=== PATIENT | male | born 1935 | race Two or more races ===

== ENCOUNTER → 2016-11-02 | Outpatient (CLI) | payer OTHER ==
[~2016-11-02] MED LIST: VERA240T67 PO
[2016-11-02 08:00] LABS: Basophils # (auto) 0 uL; Basophils % (auto) 0.5 % (0.0-2.0); Eosinophils # (auto) 0.3 uL; Eosinophils % (auto) 5.5 % (0.0-7.0); Hematocrit 49.2 % (41.0-53.0); Hemoglobin 16.2 g/dL (13.5-17.5); Lymphocytes # (auto) 2.5 uL; Lymphocytes % (auto) 41.7 % (10.0-50.0); Mean Corpuscular Hemoglobin 29.9 pg (28.0-32.0); Mean Corpuscular Volume 90.5 fL (80.0-100.0); Mean Platelet Volume 9.9 fL (7.4-10.4); Monocytes # (auto) 0.6 uL; Monocytes % (auto) 10.5 % (0.0-12.0); Neutrophils # (auto) 2.5 uL; Neutrophils % (auto) 41.8 % (37.0-80.0); Platelet Count (auto) 164 10^3/uL (140-450); Red Cell Distribution Width 13.7 % (11.6-16.0)
[2016-11-02 08:14] LABS: Urine Bilirubin Negative (Negative); Urine Blood 1+ /uL (Negative); Urine Color Yellow (Yellow); Urine Glucose Normal (Normal); Urine Ketone Negative (Negative); Urine Nitrite Negative (Negative); Urine RBC 4 /hpf (0 - 3); Urine Squamous Epithelial Cell FEW /hpf (<5); Urine Urobilinogen Normal (Negative)
[2016-11-02 08:43] LABS: BUN/Creatinine Ratio 17.9; Bilirubin, Total 1.6 mg/dL (0.2-1.0); Calcium 8.5 mg/dL (8.5-10.1); Total Protein 7.1 g/dL (6.4-8.2)
== END | disposition home or self-care (01) ==
LOC: LAB 07:18
PROVIDERS: ATTEND Internal Medicine
DX: Z00.00 Encounter for general adult medical examination without abnormal findings (principal); I10 Essential (primary) hypertension; R73.09 Other abnormal glucose; E55.9 Vitamin D deficiency, unspecified
CPT/HCPCS: 36415; 80053; 80061; 81001; 82043; 82306; 83036; 85025

== ENCOUNTER → 2016-11-08 | Outpatient (CLI) | payer OTHER ==
[2016-11-08 09:24] LABS: Albumin 3.9 g/dL (3.4-5.0); Bilirubin, Total 1.2 mg/dL (0.2-1.0); Total Protein 7.2 g/dL (6.4-8.2)
[2016-11-08 09:41] LABS: Bilirubin, Direct 0.3 mg/dL (0-0.2)
== END | disposition home or self-care (01) ==
LOC: LAB 07:59
PROVIDERS: ATTEND Internal Medicine
DX: E11.9 Type 2 diabetes mellitus without complications (principal); R73.09 Other abnormal glucose
CPT/HCPCS: 36415; 80076

== ENCOUNTER → 2016-12-30 | Outpatient (CLI) | payer OTHER ==
[2016-12-30 10:27] LABS: Albumin 3.7 g/dL (3.4-5.0); Bilirubin, Direct 0.2 mg/dL (0-0.2); Bilirubin, Total 1.4 mg/dL (0.2-1.0); Total Protein 6.6 g/dL (6.4-8.2)
== END | disposition home or self-care (01) ==
LOC: LAB 09:29
PROVIDERS: ATTEND Internal Medicine
DX: K75.81 Nonalcoholic steatohepatitis (NASH) (principal); Z86.79 Personal history of other diseases of the circulatory system
CPT/HCPCS: 36415; 80076

== ENCOUNTER → 2017-02-07 | Outpatient (CLI) | payer OTHER ==
[2017-02-07 09:19] LABS: Albumin 3.9 g/dL (3.4-5.0); Bilirubin, Direct 0.2 mg/dL (0-0.2); Bilirubin, Total 1.1 mg/dL (0.2-1.0)
== END ==
LOC: LAB 08:31
PROVIDERS: ATTEND Internal Medicine
DX: E87.8 Other disorders of electrolyte and fluid balance, not elsewhere classified (principal)
CPT/HCPCS: 36415; 80076

== ENCOUNTER → 2017-09-22 | Outpatient (CLI) | payer OTHER ==
[2017-09-22 08:05] LABS: Basophils # (auto) 0 uL; Basophils % (auto) 0.8 % (0.0-2.0); Eosinophils # (auto) 0.3 uL; Eosinophils % (auto) 4.8 % (0.0-7.0); Hematocrit 51.6 % (41.0-53.0); Hemoglobin 16.9 g/dL (13.5-17.5); Lymphocytes # (auto) 2.4 uL; Lymphocytes % (auto) 40.5 % (10.0-50.0); Mean Corpuscular Hemoglobin 30.4 pg (28.0-32.0); Mean Corpuscular Hgb Conc. 32.7 g/dL (32.0-36.0); Monocytes # (auto) 0.6 uL; Monocytes % (auto) 9.7 % (0.0-12.0); Neutrophils # (auto) 2.6 uL; Neutrophils % (auto) 44.2 % (37.0-80.0); Nucleated Red Blood Cells % 0.2 %; Platelet Count (auto) 139 10^3/uL (140-450); Red Blood Cells 5.55 10^6/uL (4.5-5.90); Red Cell Distribution Width 13.5 % (11.8-14.3); White Blood Cell 5.8 10^3/uL (4.4-10.8)
[2017-09-22 08:29] LABS: BUN/Creatinine Ratio 14.9; Bilirubin, Total 1.1 mg/dL (0.2-1.0); Potassium 4.4 mmol/L (3.5-5.1); Total Protein 7.7 g/dL (6.4-8.2)
== END | disposition home or self-care (01) ==
LOC: LAB 07:31
PROVIDERS: ATTEND Physician Assistant
DX: I10 Essential (primary) hypertension (principal); E11.9 Type 2 diabetes mellitus without complications; I25.119 Atherosclerotic heart disease of native coronary artery with unspecified angina pectoris; K76.0 Fatty (change of) liver, not elsewhere classified; Z86.79 Personal history of other diseases of the circulatory system
CPT/HCPCS: 36415; 80053; 80061; 83036; 85025

== ENCOUNTER → 2017-11-30 | Outpatient (CLI) | payer OTHER | END | disposition home or self-care (01) | LOC: XYW 07:18 | PROVIDERS: ATTEND Internal Medicine | DX: I48.91 Unspecified atrial fibrillation (principal); E11.9 Type 2 diabetes mellitus without complications; I10 Essential (primary) hypertension | CPT/HCPCS: 93306 ==

== ENCOUNTER → 2018-04-19 | Outpatient (CLI) | payer OTHER ==
[~2018-04-19] VITALS: Ht 180.3 cm; Wt 74.8 kg
[~2018-04-19] MED LIST changes: +ADENOSINE 63 MG in GIVE UN-DILUTED 0 ML IV STA
[2018-04-19 10:39] VITALS: BP 159/69
== END | disposition home or self-care (01) ==
LOC: XY 09:17
PROVIDERS: ATTEND Internal Medicine
DX: I48.91 Unspecified atrial fibrillation (principal); R42 Dizziness and giddiness; R00.2 Palpitations
CPT/HCPCS: 78452; 93017; A9500; J0153

== ENCOUNTER → 2018-05-17 | Outpatient (CLI) | payer OTHER ==
[~2018-05-17] MED LIST changes: -ADENOSINE 63 MG in GIVE UN-DILUTED 0 ML IV STA; +ASPI81TA27 PO; +CLOP75TA28 PO
[2018-05-17 10:40] LABS: Basophils # (auto) 0 uL; Basophils % (auto) 0.6 % (0.0-2.0); Eosinophils # (auto) 0.4 uL; Eosinophils % (auto) 6.3 % (0.0-7.0); Hematocrit 47.2 % (41.0-53.0); Hemoglobin 15.7 g/dL (13.5-17.5); Lymphocytes # (auto) 2.3 uL; Lymphocytes % (auto) 41.9 % (10.0-50.0); Mean Corpuscular Hemoglobin 30.3 pg (28.0-32.0); Mean Corpuscular Hgb Conc. 33.3 g/dL (32.0-36.0); Monocytes # (auto) 0.7 uL; Monocytes % (auto) 12.9 % (0.0-12.0); Neutrophils # (auto) 2.1 uL; Neutrophils % (auto) 38.3 % (37.0-80.0); Nucleated Red Blood Cells % 0.1 %; Platelet Count (auto) 130 10^3/uL (140-450); Red Blood Cells 5.18 10^6/uL (4.5-5.90); Red Cell Distribution Width 13.6 % (11.8-14.3); White Blood Cell 5.6 10^3/uL (4.4-10.8)
[2018-05-17 10:54] LABS: INR 1.03 (0.9-1.15); Partial Thromboplastin Time 28.2 sec (23.78-33.04)
[2018-05-17 10:57] LABS: Albumin 3.7 g/dL (3.4-5.0); BUN/Creatinine Ratio 15.1; Calcium 8.2 mg/dL (8.5-10.1); Potassium 4.3 mmol/L (3.5-5.1)
[2018-05-17 11:00] LABS: Bilirubin, Total 1.1 mg/dL (0.2-1.0)
== END | disposition home or self-care (01) ==
LOC: LAB 10:08
PROVIDERS: ATTEND Internal Medicine
DX: Z01.812 Encounter for preprocedural laboratory examination (principal)
CPT/HCPCS: 36415; 80053; 85025; 85610; 85730

== ENCOUNTER → 2018-07-26 | Outpatient (CLI) | payer OTHER ==
[2018-07-26 07:23] LABS: Basophils # (auto) 0 uL; Basophils % (auto) 0.5 % (0.0-2.0); Eosinophils # (auto) 0.4 uL; Eosinophils % (auto) 6.7 % (0.0-7.0); Hematocrit 52.1 % (41.0-53.0); Hemoglobin 17.3 g/dL (13.5-17.5); Lymphocytes # (auto) 2.4 uL; Mean Corpuscular Hemoglobin 30.6 pg (28.0-32.0); Mean Corpuscular Hgb Conc. 33.3 g/dL (32.0-36.0); Monocytes # (auto) 0.6 uL; Monocytes % (auto) 9.6 % (0.0-12.0); Neutrophils # (auto) 2.6 uL; Neutrophils % (auto) 43.2 % (37.0-80.0); Nucleated Red Blood Cells % 0.3 %; Platelet Count (auto) 147 10^3/uL (140-450); Red Blood Cells 5.66 10^6/uL (4.5-5.90); Red Cell Distribution Width 13.3 % (11.8-14.3)
[2018-07-26 07:28] LABS: Urine Bacteria FEW /hpf (None Seen); Urine Blood TRACE /uL (Negative); Urine Specific Gravity 1.011 (1.001-1.035); Urine WBC <1 /hpf (0 - 3)
[2018-07-26 08:32] LABS: Albumin 3.9 g/dL (3.4-5.0); Calcium 8.7 mg/dL (8.5-10.1); Potassium 4.2 mmol/L (3.5-5.1)
[2018-07-26 08:37] LABS: BUN/Creatinine Ratio 12.2; Bilirubin, Total 1.2 mg/dL (0.2-1.0); Total Protein 7.3 g/dL (6.4-8.2)
== END | disposition home or self-care (01) ==
LOC: LAB 07:03
PROVIDERS: ATTEND Physician Assistant
DX: I10 Essential (primary) hypertension (principal); E11.9 Type 2 diabetes mellitus without complications; E78.5 Hyperlipidemia, unspecified; K75.81 Nonalcoholic steatohepatitis (NASH)
CPT/HCPCS: 36415; 80053; 80061; 81001; 83036; 85025

== ENCOUNTER → 2018-10-03 | Outpatient (CLI) | payer OTHER ==
[2018-10-03 09:14] LABS: Cholesterol 182 mg/dL (< 200); HDL Cholesterol 46 mg/dL (40-59); LDL Cholesterol 117 mg/dL (< 100); Triglycerides 141 mg/dL (< 150)
== END | disposition home or self-care (01) ==
LOC: LAB 07:30
PROVIDERS: ATTEND Internal Medicine
DX: E78.5 Hyperlipidemia, unspecified (principal)
CPT/HCPCS: 36415; 80061

== ENCOUNTER → 2019-06-14 | Outpatient (CLI) | payer OTHER ==
[~2019-06-14] MED LIST changes: +ASPI-404 PO; -ASPI81TA27 PO
[2019-06-14 07:37] LABS: Basophils # (auto) 0 uL; Basophils % (auto) 0.4 % (0.0-2.0); Eosinophils # (auto) 0.3 uL; Eosinophils % (auto) 4.4 % (0.0-7.0); Hemoglobin 15.3 g/dL (13.5-17.5); Lymphocytes % (auto) 35.1 % (10.0-50.0); Mean Corpuscular Hemoglobin 30.4 pg (28.0-32.0); Mean Corpuscular Hgb Conc. 33.4 g/dL (32.0-36.0); Mean Corpuscular Volume 91.2 fL (80.0-100.0); Monocytes # (auto) 0.6 uL; Monocytes % (auto) 10.7 % (0.0-12.0); Neutrophils # (auto) 2.8 uL; Neutrophils % (auto) 49.4 % (37.0-80.0); Platelet Count (auto) 130 10^3/uL (140-450); Red Blood Cells 5.04 10^6/uL (4.5-5.90); Red Cell Distribution Width 13.4 % (11.8-14.3); White Blood Cell 5.7 10^3/uL (4.4-10.8)
[2019-06-14 08:25] LABS: Calcium 8.4 mg/dL (8.5-10.1)
[2019-06-14 08:30] LABS: BUN/Creatinine Ratio 20.3; Bilirubin, Total 1.3 mg/dL (0.2-1.0); Total Protein 7.2 g/dL (6.4-8.2)
== END | disposition home or self-care (01) ==
LOC: LAB 07:03
PROVIDERS: ATTEND Physician Assistant
DX: Z12.5 Encounter for screening for malignant neoplasm of prostate (principal); E11.9 Type 2 diabetes mellitus without complications; E78.5 Hyperlipidemia, unspecified; I10 Essential (primary) hypertension
CPT/HCPCS: 36415; 80053; 80061; 83036; 84153; 85025

== ENCOUNTER → 2019-12-13 | Outpatient (CLI) | payer OTHER | END | disposition home or self-care (01) | LOC: XYW 07:41 | PROVIDERS: ATTEND Internal Medicine | DX: I08.2 Rheumatic disorders of both aortic and tricuspid valves (principal); I48.91 Unspecified atrial fibrillation; I10 Essential (primary) hypertension | CPT/HCPCS: 93306 ==

== ENCOUNTER → 2020-01-10 | Outpatient (CLI) | payer OTHER | END | disposition home or self-care (01) | LOC: XY 08:51 | PROVIDERS: ATTEND Internal Medicine | DX: I65.23 Occlusion and stenosis of bilateral carotid arteries (principal); R09.89 Other specified symptoms and signs involving the circulatory and respiratory systems | CPT/HCPCS: 93886 ==

== ENCOUNTER → 2020-05-29 | Outpatient (CLI) | payer OTHER ==
[~2020-05-29] MED LIST changes: -ASPI-404 PO; +ASPI-543 PO
[2020-05-29 15:20] LABS: Basophils # (auto) 0 10 ^3/uL (0-0.2); Basophils % (auto) 0.7 % (0.0-2.0); Eosinophils # (auto) 0.4 10 ^3/uL (0-0.8); Eosinophils % (auto) 6.4 % (0.0-7.0); Hematocrit 46.8 % (41.0-53.0); Hemoglobin 15.5 g/dL (13.5-17.5); Lymphocytes # (auto) 2.3 10 ^3/uL (0.4-5.4); Lymphocytes % (auto) 37.3 % (10.0-50.0); Mean Corpuscular Hemoglobin 30.1 pg (28.0-32.0); Mean Corpuscular Volume 91.1 fL (80.0-100.0); Monocytes # (auto) 0.9 10 ^3/uL (0-1.3); Monocytes % (auto) 15.2 % (0.0-12.0); Neutrophils # (auto) 2.5 10 ^3/uL (1.6-8.6); Neutrophils % (auto) 40.4 % (37.0-80.0); Nucleated Red Blood Cells % 0.1 %; Platelet Count (auto) 145 10^3/uL (140-450); Red Blood Cells 5.13 10^6/uL (4.5-5.90); Red Cell Distribution Width 13.4 % (11.8-14.3); White Blood Cell 6.1 10^3/uL (4.4-10.8)
[2020-05-29 15:52] LABS: Calcium 8.6 mg/dL (8.5-10.1); Potassium 4.3 mmol/L (3.5-5.1)
[2020-05-29 15:54] LABS: BUN/Creatinine Ratio 15.7
[2020-05-29 15:57] LABS: Bilirubin, Total 1.4 mg/dL (0.2-1.0); Total Protein 7.4 g/dL (6.4-8.2)
== END | disposition home or self-care (01) ==
LOC: LAB 15:07
PROVIDERS: ATTEND Internal Medicine
DX: I25.10 Atherosclerotic heart disease of native coronary artery without angina pectoris (principal); E78.5 Hyperlipidemia, unspecified; I48.91 Unspecified atrial fibrillation
CPT/HCPCS: 36415; 80053; 85025

== ENCOUNTER → 2020-08-01 | Outpatient (CLI) | payer OTHER ==
[2020-08-01 07:42] LABS: Basophils # (auto) 0 10 ^3/uL (0-0.2); Basophils % (auto) 0.6 % (0.0-2.0); Eosinophils # (auto) 0.2 10 ^3/uL (0-0.8); Hematocrit 48.9 % (41.0-53.0); Hemoglobin 16.5 g/dL (13.5-17.5); Lymphocytes # (auto) 2.7 10 ^3/uL (0.4-5.4); Lymphocytes % (auto) 43.2 % (10.0-50.0); Mean Corpuscular Hemoglobin 30.5 pg (28.0-32.0); Mean Corpuscular Hgb Conc. 33.7 g/dL (32.0-36.0); Mean Corpuscular Volume 90.6 fL (80.0-100.0); Monocytes # (auto) 0.6 10 ^3/uL (0-1.3); Monocytes % (auto) 10.4 % (0.0-12.0); Neutrophils # (auto) 2.6 10 ^3/uL (1.6-8.6); Neutrophils % (auto) 41.8 % (37.0-80.0); Nucleated Red Blood Cells % 0.1 %; Platelet Count (auto) 145 10^3/uL (140-450); Red Cell Distribution Width 13.3 % (11.8-14.3); White Blood Cell 6.2 10^3/uL (4.4-10.8)
[2020-08-01 08:39] LABS: Albumin 3.9 g/dL (3.4-5.0); Bilirubin, Total 1.7 mg/dL (0.2-1.0); Calcium 9.3 mg/dL (8.5-10.1); Total Protein 7.5 g/dL (6.4-8.2)
[2020-08-01 08:59] LABS: Potassium 4.7 mmol/L (3.5-5.1)
== END | disposition home or self-care (01) ==
LOC: LAB 07:13
PROVIDERS: ATTEND Physician Assistant
DX: I10 Essential (primary) hypertension (principal); E11.9 Type 2 diabetes mellitus without complications; I49.9 Cardiac arrhythmia, unspecified; R35.1 Nocturia; Z86.79 Personal history of other diseases of the circulatory system
CPT/HCPCS: 36415; 80053; 80061; 82043; 83036; 84153; 85025

== ENCOUNTER → 2020-08-13 | Outpatient (CLI) | payer OTHER ==
[~2020-08-13] VITALS: Ht 180.3 cm; Wt 79.4 kg
[~2020-08-13] MED LIST changes: +ADENOSINE 67 MG in GIVE UN-DILUTED 0 ML IV STA
[2020-08-13 09:46] VITALS: BP 137/56
== END | disposition home or self-care (01) ==
LOC: XYW 07:02
PROVIDERS: ATTEND Internal Medicine
DX: I48.91 Unspecified atrial fibrillation (principal)
CPT/HCPCS: 78452; 93017; A9500; J0153

== ENCOUNTER → 2020-11-26 | Day surgery (SDC) | payer OTHER ==
[2020-11-21 11:05] LABS: Basophils # (auto) 0 10 ^3/uL (0-0.2); Basophils % (auto) 0.7 % (0.0-2.0); Eosinophils # (auto) 0.3 10 ^3/uL (0-0.8); Hematocrit 48.1 % (41.0-53.0); Lymphocytes # (auto) 2.8 10 ^3/uL (0.4-5.4); Lymphocytes % (auto) 41.1 % (10.0-50.0); Mean Corpuscular Hemoglobin 30.3 pg (28.0-32.0); Mean Corpuscular Hgb Conc. 33.3 g/dL (32.0-36.0); Mean Corpuscular Volume 91.1 fL (80.0-100.0); Monocytes # (auto) 0.8 10 ^3/uL (0-1.3); Monocytes % (auto) 11.9 % (0.0-12.0); Neutrophils # (auto) 2.9 10 ^3/uL (1.6-8.6); Neutrophils % (auto) 42.3 % (37.0-80.0); Nucleated Red Blood Cells % 0.2 %; Platelet Count (auto) 134 10^3/uL (140-450); Red Blood Cells 5.27 10^6/uL (4.5-5.90); Red Cell Distribution Width 13.8 % (11.8-14.3); White Blood Cell 6.9 10^3/uL (4.4-10.8)
[2020-11-21 11:13] LABS: Urine Bacteria NONE SEEN /hpf (None Seen); Urine Blood 1+ /uL (Negative); Urine Specific Gravity 1.013 (1.001-1.035); Urine WBC <1 /hpf (0 - 3)
[2020-11-21 11:24] LABS: INR 1.08 (0.9-1.15); Partial Thromboplastin Time 28.7 sec (23.0-31.2)
[2020-11-21 11:33] LABS: Albumin 3.9 g/dL (3.4-5.0); Calcium 8.8 mg/dL (8.5-10.1); Potassium 4.2 mmol/L (3.5-5.1)
[2020-11-21 11:39] LABS: BUN/Creatinine Ratio 18.1; Bilirubin, Total 1.8 mg/dL (0.2-1.0); Total Protein 7.2 g/dL (6.4-8.2)
[~2020-11-26] VITALS: Ht 180.3 cm; Wt 79.4 kg
[~2020-11-26] MED LIST changes: -ADENOSINE 67 MG in GIVE UN-DILUTED 0 ML IV STA; +ATOR20TA PO; +BUPIVACAINE W/ EPINEPH 0.5% MPF 30ML VIAL IJ ONE; +DexAMETHasone SOD PHOS 10MG/1ML VIAL INJ ONE; +ETOMIDATE (2MG/ML) 20ML VIAL IV ONE; +HYDROmorphone HCL 2 MG/ML VL IV PRN; +LABETALOL HCL 5 MG/ML 4ML SYRINGE IV PRN; +MEPERIDINE HCL (50 MG/ML) 1 ML VIAL ONE; +MIDAZOLAM HCL 1MG/1ML-2 ML VIAL IV PRN; +MIDAZOLAM HCL 1MG/1ML-2 ML VIAL ONE; +MORPHINE SULFATE 4 MG/ML SYR/VIAL IV PRN; +ONDANSETRON HCL 4 MG/2 ML VIAL IV PRN; +ONDANSETRON HCL 4 MG/2 ML VIAL ONE; +SUCCINYLCHOLINE CHLORIDE 20 MG/ML 10ML VIAL IV ONE; +ceFAZolin 1GM/50ML 50 ML IV ONE; +ePHEDrine SULFATE 50 MG/ML AMP IV PRN; +fentaNYL CITRATE 100 MCG/2 ML VL ONE; +hydrALAZINE HCL 20 MG/ML VL IV PRN
[2020-11-26 06:30] VITALS: BP 151/77
== END | disposition home or self-care (01) ==
LOC: SUR 06:11
PROVIDERS: ATTEND Surgery
DX: K40.90 Unilateral inguinal hernia, without obstruction or gangrene, not specified as recurrent (principal); I49.9 Cardiac arrhythmia, unspecified; I10 Essential (primary) hypertension; I25.810 Atherosclerosis of coronary artery bypass graft(s) without angina pectoris; E78.5 Hyperlipidemia, unspecified; Z20.822 Contact with and (suspected) exposure to COVID-19; Z98.890 Other specified postprocedural states; Z79.899 Other long term (current) drug therapy; Z79.82 Long term (current) use of aspirin; Z87.891 Personal history of nicotine dependence; Z95.5 Presence of coronary angioplasty implant and graft
CPT/HCPCS: 36415; 49505; 80053; 81001; 85025; 85610; 85730; 88302; J0330; J0690; J1100; J2175; J2250; J2405; J3010; Q4100; U0003

== ENCOUNTER → 2021-07-27 | Outpatient (CLI) | payer OTHER ==
[~2021-07-27] MED LIST changes: -BUPIVACAINE W/ EPINEPH 0.5% MPF 30ML VIAL IJ ONE; -DexAMETHasone SOD PHOS 10MG/1ML VIAL INJ ONE; -ETOMIDATE (2MG/ML) 20ML VIAL IV ONE; -HYDROmorphone HCL 2 MG/ML VL IV PRN; -LABETALOL HCL 5 MG/ML 4ML SYRINGE IV PRN; -MEPERIDINE HCL (50 MG/ML) 1 ML VIAL ONE; -MIDAZOLAM HCL 1MG/1ML-2 ML VIAL IV PRN; -MIDAZOLAM HCL 1MG/1ML-2 ML VIAL ONE; -MORPHINE SULFATE 4 MG/ML SYR/VIAL IV PRN; -ONDANSETRON HCL 4 MG/2 ML VIAL IV PRN; -ONDANSETRON HCL 4 MG/2 ML VIAL ONE; -SUCCINYLCHOLINE CHLORIDE 20 MG/ML 10ML VIAL IV ONE; -ceFAZolin 1GM/50ML 50 ML IV ONE; -ePHEDrine SULFATE 50 MG/ML AMP IV PRN; -fentaNYL CITRATE 100 MCG/2 ML VL ONE; -hydrALAZINE HCL 20 MG/ML VL IV PRN
[2021-07-27 07:31] LABS: Basophils # (auto) 0 10 ^3/uL (0-0.2); Basophils % (auto) 0.3 % (0.0-2.0); Eosinophils # (auto) 0.3 10 ^3/uL (0-0.8); Eosinophils % (auto) 4.7 % (0.0-7.0); Hematocrit 49.3 % (41.0-53.0); Hemoglobin 16.2 g/dL (13.5-17.5); Lymphocytes # (auto) 2.5 10 ^3/uL (0.4-5.4); Lymphocytes % (auto) 41.9 % (10.0-50.0); Mean Corpuscular Hemoglobin 29.9 pg (28.0-32.0); Mean Corpuscular Hgb Conc. 32.9 g/dL (32.0-36.0); Mean Corpuscular Volume 90.9 fL (80.0-100.0); Monocytes # (auto) 0.6 10 ^3/uL (0-1.3); Monocytes % (auto) 10.2 % (0.0-12.0); Neutrophils # (auto) 2.6 10 ^3/uL (1.6-8.6); Neutrophils % (auto) 42.9 % (37.0-80.0); Nucleated Red Blood Cells % 0.2 %; Red Blood Cells 5.42 10^6/uL (4.5-5.90); Red Cell Distribution Width 13.5 % (11.8-14.3)
[2021-07-27 08:31] LABS: Potassium 4.2 mmol/L (3.5-5.1)
[2021-07-27 08:41] LABS: Albumin 4.2 g/dL (3.4-5.0); BUN/Creatinine Ratio 15.2; Bilirubin, Total 2.1 mg/dL (0.2-1.0); Calcium 9.2 mg/dL (8.5-10.1); Total Protein 7.2 g/dL (6.4-8.2)
== END | disposition home or self-care (01) ==
LOC: LAB 07:05
PROVIDERS: ATTEND Nurse Practitioner Family
DX: I25.10 Atherosclerotic heart disease of native coronary artery without angina pectoris (principal); I48.91 Unspecified atrial fibrillation; E11.9 Type 2 diabetes mellitus without complications
CPT/HCPCS: 36415; 80053; 80061; 82043; 83036; 84153; 85025

== ENCOUNTER → 2021-08-10 | Outpatient (CLI) | payer OTHER ==
[2021-08-10 12:37] LABS: Potassium 4.4 mmol/L (3.5-5.1)
[2021-08-10 12:48] LABS: Albumin 4.1 g/dL (3.4-5.0); BUN/Creatinine Ratio 14.7; Bilirubin, Total 1.3 mg/dL (0.2-1.0); Calcium 8.7 mg/dL (8.5-10.1); Total Protein 7.6 g/dL (6.4-8.2)
[2021-08-10 12:52] LABS: Hemoglobin 16.2 g/dL (13.5-17.5); Red Cell Distribution Width 13.3 % (11.8-14.3); White Blood Cell 6.2 10^3/uL (4.4-10.8)
[2021-08-10 13:44] LABS: Hematocrit 49.1 % (41.0-53.0); Mean Corpuscular Hemoglobin 29.8 pg (28.0-32.0); Mean Corpuscular Volume 90.3 fL (80.0-100.0); Red Blood Cells 5.44 10^6/uL (4.5-5.90)
[2021-08-10 13:59] LABS: Basophils % (manual) 0 (0.0-2.0); Blast Cells 0; Eosinophils % (manual) 0 (0-7); Metamyelocytes % 0; Myelocytes % 0; Promyelocytes % 0; Reactive Lymphocytes 0
[2021-08-10 14:02] LABS: Urine Bacteria NONE SEEN /hpf (None Seen); Urine Blood 2+ /uL (Negative); Urine WBC 1 /hpf (0 - 3)
[2021-08-10 16:20] LABS: Band Neutrophils % (manual) 4; Lymphocytes % (manual) 32 (10.0-50.0); Monocytes % (manual) 15 (0-12)
== END | disposition home or self-care (01) ==
LOC: LAB 11:25
PROVIDERS: ATTEND Nurse Practitioner Family
DX: Z01.818 Encounter for other preprocedural examination (principal); H26.9 Unspecified cataract; I11.0 Hypertensive heart disease with heart failure; E11.9 Type 2 diabetes mellitus without complications
CPT/HCPCS: 36415; 80053; 81001; 85007; 85027

== ENCOUNTER → 2022-06-14 | Outpatient (CLI) | payer OTHER | END | disposition home or self-care (01) | LOC: LAB 09:52 | PROVIDERS: ATTEND Nurse Practitioner Family | DX: R10.32 Left lower quadrant pain (principal) | CPT/HCPCS: 36415; 82565; 84520 ==

== ENCOUNTER → 2022-09-22 | Outpatient (CLI) | payer OTHER ==
[2022-09-22 09:02] LABS: Albumin 4.1 g/dL (3.4-5.0); Calcium 9.2 mg/dL (8.5-10.1); Potassium 4.4 mmol/L (3.5-5.1)
[2022-09-22 09:09] LABS: BUN/Creatinine Ratio 15.7; Bilirubin, Total 1.2 mg/dL (0.2-1.0); Total Protein 7.2 g/dL (6.4-8.2)
[2022-09-22 09:27] LABS: Basophils # (auto) 0 10 ^3/uL (0-0.2); Basophils % (auto) 0.5 % (0.0-2.0); Eosinophils # (auto) 0.3 10 ^3/uL (0-0.8); Eosinophils % (auto) 3.9 % (0.0-7.0); Hematocrit 49.2 % (41.0-53.0); Hemoglobin 16.6 g/dL (13.5-17.5); Lymphocytes # (auto) 2.7 10 ^3/uL (0.4-5.4); Lymphocytes % (auto) 40.1 % (10.0-50.0); Mean Corpuscular Hgb Conc. 33.8 g/dL (32.0-36.0); Mean Corpuscular Volume 91.8 fL (80.0-100.0); Monocytes # (auto) 0.7 10 ^3/uL (0-1.3); Monocytes % (auto) 10.8 % (0.0-12.0); Neutrophils % (auto) 44.7 % (37.0-80.0); Nucleated Red Blood Cells % 0.3 %; Red Blood Cells 5.36 10^6/uL (4.5-5.90); Red Cell Distribution Width 13.5 % (11.8-14.3); White Blood Cell 6.7 10^3/uL (4.4-10.8)
== END | disposition home or self-care (01) ==
LOC: LAB 07:42
PROVIDERS: ATTEND Nurse Practitioner Family
DX: Z00.00 Encounter for general adult medical examination without abnormal findings (principal); E78.5 Hyperlipidemia, unspecified; I10 Essential (primary) hypertension; E11.9 Type 2 diabetes mellitus without complications
CPT/HCPCS: 36415; 80053; 80061; 82043; 83036; 84439; 84443; 85025

== ENCOUNTER → 2022-11-02 | Outpatient (CLI) | payer OTHER | END | disposition home or self-care (01) | LOC: XYW 07:31 | PROVIDERS: ATTEND Internal Medicine | DX: I70.0 Atherosclerosis of aorta (principal) | CPT/HCPCS: 93306 ==

== ENCOUNTER 2022-11-22 06:48 | Inpatient (IN) | payer OTHER ==
[~2022-11-22] VITALS: Ht 175.3 cm; Wt 73.0 kg
[2022-11-22 08:07] LABS: Basophils # (auto) 0 10 ^3/uL (0-0.2); Basophils % (auto) 0.6 % (0.0-2.0); Eosinophils # (auto) 0.3 10 ^3/uL (0-0.8); Eosinophils % (auto) 4.6 % (0.0-7.0); Hematocrit 49.2 % (41.0-53.0); Hemoglobin 16.3 g/dL (13.5-17.5); Lymphocytes # (auto) 2.3 10 ^3/uL (0.4-5.4); Mean Corpuscular Hemoglobin 30.4 pg (28.0-32.0); Mean Corpuscular Hgb Conc. 33.2 g/dL (32.0-36.0); Mean Corpuscular Volume 91.6 fL (80.0-100.0); Monocytes # (auto) 0.8 10 ^3/uL (0-1.3); Monocytes % (auto) 11.9 % (0.0-12.0); Neutrophils # (auto) 3.1 10 ^3/uL (1.6-8.6); Neutrophils % (auto) 47.9 % (37.0-80.0); Nucleated Red Blood Cells % 0.4 %; Red Blood Cells 5.37 10^6/uL (4.5-5.90); Red Cell Distribution Width 13.1 % (11.8-14.3); White Blood Cell 6.5 10^3/uL (4.4-10.8)
[2022-11-22 10:40] LABS: Urine Bacteria NONE SEEN /hpf (None Seen); Urine Blood 1+ /uL (Negative); Urine Specific Gravity 1.021 (1.001-1.035); Urine WBC <1 /hpf (0 - 3)
[2022-11-22 10:49] LABS: Albumin 3.7 g/dL (3.4-5.0); BUN/Creatinine Ratio 18.9 (10.0-20.0)
[2022-11-22 10:58] LABS: Bilirubin, Total 1.5 mg/dL (0.2-1.0); Total Protein 6.6 g/dL (6.4-8.2)
[2022-11-22] MEDS ORDERED: ACETAMINOPHEN 325 MG TAB PO PRN (14:30)
[2022-11-22] MEDS: SODIUM CHLORIDE 0.9% 1,000 ML IV SCH (14:49)
[2022-11-22 21:08] VITALS: BP 136/70
[2022-11-22] MEDS: HEPARIN SODIUM (PORCINE) 5000 UNITS/ML 1ML VIAL SC SCH (22:00)
[2022-11-23] MEDS: SODIUM CHLORIDE 0.9% 1,000 ML IV SCH (03:53)
[2022-11-23 05:00] VITALS: BP 124/81
[2022-11-23 06:30] LABS: Basophils # (auto) 0 10 ^3/uL (0-0.2); Basophils % (auto) 0.5 % (0.0-2.0); Eosinophils # (auto) 0.3 10 ^3/uL (0-0.8); Eosinophils % (auto) 5.2 % (0.0-7.0); Hematocrit 48.5 % (41.0-53.0); Hemoglobin 16.3 g/dL (13.5-17.5); Lymphocytes # (auto) 2.1 10 ^3/uL (0.4-5.4); Mean Corpuscular Hemoglobin 30.7 pg (28.0-32.0); Mean Corpuscular Hgb Conc. 33.5 g/dL (32.0-36.0); Mean Corpuscular Volume 91.7 fL (80.0-100.0); Monocytes # (auto) 0.7 10 ^3/uL (0-1.3); Monocytes % (auto) 11.5 % (0.0-12.0); Neutrophils % (auto) 48.8 % (37.0-80.0); Nucleated Red Blood Cells % 0.1 %; Red Blood Cells 5.29 10^6/uL (4.5-5.90); Red Cell Distribution Width 13.1 % (11.8-14.3); White Blood Cell 6.2 10^3/uL (4.4-10.8)
[2022-11-23 06:42] LABS: Potassium 4.3 mmol/L (3.5-5.1)
[2022-11-23 06:55] LABS: Albumin 3.5 g/dL (3.4-5.0); BUN/Creatinine Ratio 16.7 (10.0-20.0); Bilirubin, Total 1.9 mg/dL (0.2-1.0); Calcium 8.7 mg/dL (8.5-10.1); Total Protein 6.6 g/dL (6.4-8.2)
[2022-11-23 09:15] VITALS: BP 143/85
[2022-11-23] MEDS: CLOPIDOGREL BISULFATE 75 MG TAB PO SCH (09:59)
[2022-11-23] MEDS: ATORVASTATIN 20 MG TAB PO SCH (10:00)
[2022-11-23] MEDS: VERAPAMIL HCL 120 mg ER tab PO SCH (10:00)
[2022-11-23] MEDS: HEPARIN SODIUM (PORCINE) 5000 UNITS/ML 1ML VIAL SC SCH ×2 (10:01→21:30)
[2022-11-23 12:57] VITALS: BP 133/67
[2022-11-23 13:00] VITALS: BP 103/62
[2022-11-23] MEDS ORDERED: GADOTERATE MEG 7.5 MMOL/15ml INJ (0.5MMOL/ml) IV ONE (16:10)
[2022-11-23 20:00] VITALS: BP 131/64
[2022-11-23 22:00] VITALS: BP 131/64
[2022-11-24 05:00] VITALS: BP 104/67
[2022-11-24 08:48] VITALS: BP 126/76
[2022-11-24] MEDS: HEPARIN SODIUM (PORCINE) 5000 UNITS/ML 1ML VIAL SC SCH (09:10)
[2022-11-24] MEDS: VERAPAMIL HCL 120 mg ER tab PO SCH (09:11)
[2022-11-24] MEDS: CLOPIDOGREL BISULFATE 75 MG TAB PO SCH (09:11)
[2022-11-24] MEDS: ATORVASTATIN 20 MG TAB PO SCH (09:12)
[2022-11-24] MEDS ORDERED: ASPirin-EC 81 mg tab PO SCH (10:00)
[2022-11-24 12:30] VITALS: BP 127/48
[2022-11-25 14:00] LABS: Hepatitis A Ab IgM Negative; Hepatitis B Core IgM Negative
[2022-11-25 14:01] LABS: Hepatitis C Antibody Negative (Negative)
== END 2022-11-24 14:27 | disposition home or self-care (01) | DRG 395 ==
LOC: ER 06:48 → OVERFLOW 14:32 → WEST WING 20:46
PROVIDERS: ADMIT Nurse Practitioner Family; ATTEND Internal Medicine
DX: K40.90 Unilateral inguinal hernia, without obstruction or gangrene, not specified as recurrent (principal); I10 Essential (primary) hypertension; K86.9 Disease of pancreas, unspecified; E78.5 Hyperlipidemia, unspecified; I25.10 Atherosclerotic heart disease of native coronary artery without angina pectoris
CPT/HCPCS: 36415; 74176; 74183; 76705; 78226; 80053; 80074; 81001; 82105; 82378; 84154; 84484; 85025; 86301; 86304; 96360; G0378

== ENCOUNTER → 2023-02-16 | Day surgery (SDC) | payer OTHER ==
[2023-02-11 10:37] LABS: Basophils # (auto) 0 10 ^3/uL (0-0.2); Basophils % (auto) 0.4 % (0.0-2.0); Eosinophils # (auto) 0.3 10 ^3/uL (0-0.8); Eosinophils % (auto) 4.4 % (0.0-7.0); Hematocrit 47.6 % (41.0-53.0); Hemoglobin 15.7 g/dL (13.5-17.5); Lymphocytes % (auto) 41.8 % (10.0-50.0); Mean Corpuscular Hemoglobin 30.5 pg (28.0-32.0); Mean Corpuscular Hgb Conc. 33.1 g/dL (32.0-36.0); Mean Corpuscular Volume 92.2 fL (80.0-100.0); Monocytes # (auto) 0.9 10 ^3/uL (0-1.3); Monocytes % (auto) 12.8 % (0.0-12.0); Neutrophils % (auto) 40.6 % (37.0-80.0); Nucleated Red Blood Cells % 0.1 %; Red Blood Cells 5.16 10^6/uL (4.5-5.90); Red Cell Distribution Width 13.7 % (11.8-14.3); White Blood Cell 7.3 10^3/uL (4.4-10.8)
[2023-02-11 10:59] LABS: INR 1.16 (0.9-1.15); Partial Thromboplastin Time 29.9 SEC (24.5-34.5)
[2023-02-11 11:04] LABS: Urine Bacteria NONE SEEN /hpf (None Seen); Urine Blood 1+ /uL (Negative); Urine Specific Gravity 1.015 (1.001-1.035); Urine WBC 2 /hpf (0 - 3)
[2023-02-11 11:10] LABS: Albumin 3.7 g/dL (3.4-5.0); Calcium 8.9 mg/dL (8.5-10.1)
[2023-02-11 11:14] LABS: BUN/Creatinine Ratio 17.5 (10.0-20.0); Bilirubin, Total 1.6 mg/dL (0.2-1.0)
[~2023-02-16] VITALS: Ht 180.3 cm; Wt 80.3 kg
[~2023-02-16] MED LIST changes: +BUPIVACAINE W/ EPINEPH 0.5% INJ 50ML MDV IJ ONE; -CLOP75TA28 PO; +DexAMETHasone SOD PHOS 10MG/1ML VIAL INJ ONE; +ETOMIDATE (2MG/ML) 20ML VIAL IV ONE; +HYDROmorphone HCL 2 MG/ML VL/or syr IV PRN; +MEPERIDINE HCL (50 MG/ML) 1 ML VIAL ONE; +METOCLOPRAMIDE HCL 5MG/ml INJ 2ml VIAL IV PRN; +MIDAZOLAM HCL 2MG/2ML 2ml VIAL (1mg/ml) ONE; +MORPHINE SULFATE INJ 2 MG/ml SYRG IV PRN; +ONDANSETRON HCL 4 MG/2 ML VIAL ONE; +SODIUM CHLORIDE LOCK 10 ML ONE; +ceFAZolin 1GM/50ML 100 ML IV ONE; +fentaNYL CITRATE 100 MCG/2 ML VL ONE
[2023-02-16 10:30] VITALS: TEMP 96.9; O2SAT 95
[2023-02-16 12:45] VITALS: BP 129/65; PULSE 55; RESP 22; O2SAT 94
== END | disposition home or self-care (01) ==
LOC: SUR 08:23
PROVIDERS: ATTEND Surgery
DX: K40.91 Unilateral inguinal hernia, without obstruction or gangrene, recurrent (principal); I10 Essential (primary) hypertension; Z79.899 Other long term (current) drug therapy; Z98.890 Other specified postprocedural states
CPT/HCPCS: 36415; 49520; 80053; 81001; 85025; 85610; 85730; 86850; 86900; 86901; 88305; C1781; J0690; J1100; J2175; J2250; J2405; J3010

== ENCOUNTER → 2023-09-13 | Outpatient (CLI) | payer OTHER ==
[~2023-09-13] MED LIST changes: -BUPIVACAINE W/ EPINEPH 0.5% INJ 50ML MDV IJ ONE; -DexAMETHasone SOD PHOS 10MG/1ML VIAL INJ ONE; -ETOMIDATE (2MG/ML) 20ML VIAL IV ONE; -HYDROmorphone HCL 2 MG/ML VL/or syr IV PRN; -MEPERIDINE HCL (50 MG/ML) 1 ML VIAL ONE; -METOCLOPRAMIDE HCL 5MG/ml INJ 2ml VIAL IV PRN; -MIDAZOLAM HCL 2MG/2ML 2ml VIAL (1mg/ml) ONE; -MORPHINE SULFATE INJ 2 MG/ml SYRG IV PRN; -ONDANSETRON HCL 4 MG/2 ML VIAL ONE; -SODIUM CHLORIDE LOCK 10 ML ONE; -ceFAZolin 1GM/50ML 100 ML IV ONE; -fentaNYL CITRATE 100 MCG/2 ML VL ONE
[2023-09-13 07:49] LABS: Basophils # (auto) 0 10 ^3/uL (0-0.2); Basophils % (auto) 0.5 % (0.0-2.0); Eosinophils # (auto) 0.3 10 ^3/uL (0-0.8); Eosinophils % (auto) 5.4 % (0.0-7.0); Hematocrit 47.6 % (41.0-53.0); Hemoglobin 15.6 g/dL (13.5-17.5); Lymphocytes # (auto) 2.6 10 ^3/uL (0.4-5.4); Lymphocytes % (auto) 42.7 % (10.0-50.0); Mean Corpuscular Hemoglobin 30.3 pg (28.0-32.0); Mean Corpuscular Hgb Conc. 32.9 g/dL (32.0-36.0); Mean Corpuscular Volume 92.1 fL (80.0-100.0); Monocytes # (auto) 0.6 10 ^3/uL (0-1.3); Monocytes % (auto) 10.1 % (0.0-12.0); Neutrophils # (auto) 2.5 10 ^3/uL (1.6-8.6); Neutrophils % (auto) 41.3 % (37.0-80.0); Nucleated Red Blood Cells % 0.2 %; Red Blood Cells 5.17 10^6/uL (4.5-5.90); Red Cell Distribution Width 13.8 % (11.8-14.3); White Blood Cell 6.1 10^3/uL (4.4-10.8)
[2023-09-13 08:23] LABS: Alanine Aminotransferase 47 U/L (7-40); Albumin 4.4 g/dL (3.2-4.8); Alkaline Phosphatase 90 U/L (46-116); Anion Gap 5 (5-15); Aspartate Aminotransferase 52 U/L (13-40); Bilirubin, Total 1.7 mg/dL (0.2-1.0); Blood Urea Nitrogen 10 mg/dL (9-23); Calcium 9.4 mg/dL (8.5-10.1); Carbon Dioxide 31 mmol/L (20-30); Chloride 108 mmol/L (98-107); Cholesterol 113 mg/dL (< 200); Glucose 114 mg/dL (74-106); HDL Cholesterol 47 mg/dL (40-59); LDL Cholesterol 49 mg/dL (< 100); Potassium 4.6 mmol/L (3.5-5.1); Sodium 144 mmol/L (136-145); Triglycerides 109 mg/dL (< 150)
[2023-09-13 08:24] LABS: Total Protein 6.8 g/dL (5.7-8.2)
[2023-09-13 08:50] LABS: Prostate Specific Antigen 0.2 ng/mL (0.0-4.0)
[2023-09-13 08:52] LABS: Free T4 (Free Thyroxine) 0.85 ng/dL (0.89-1.76)
== END | disposition home or self-care (01) ==
LOC: LAB 07:14
PROVIDERS: ATTEND Nurse Practitioner Family
DX: I11.0 Hypertensive heart disease with heart failure (principal); E11.69 Type 2 diabetes mellitus with other specified complication; R35.1 Nocturia
CPT/HCPCS: 36415; 80053; 80061; 83036; 84153; 84439; 84443; 85025

== ENCOUNTER → 2024-09-17 | Outpatient (CLI) | payer OTHER ==
[2024-09-17 07:41] LABS: Basophils # (auto) 0 10 ^3/uL (0-0.2); Basophils % (auto) 0.6 % (0.0-2.0); Eosinophils # (auto) 0.2 10 ^3/uL (0-0.8); Eosinophils % (auto) 4.5 % (0.0-7.0); Hematocrit 51.1 % (41.0-53.0); Hemoglobin 16.5 g/dL (13.5-17.5); Lymphocytes # (auto) 2.2 10 ^3/uL (0.4-5.4); Mean Corpuscular Hgb Conc. 32.3 g/dL (32.0-36.0); Mean Corpuscular Volume 92.8 fL (80.0-100.0); Monocytes # (auto) 0.5 10 ^3/uL (0-1.3); Monocytes % (auto) 9.5 % (0.0-12.0); Neutrophils # (auto) 2.3 10 ^3/uL (1.6-8.6); Neutrophils % (auto) 44.4 % (37.0-80.0); Nucleated Red Blood Cells % 0.2 %; Platelet Count (auto) 138 10^3/uL (140-450); Red Blood Cells 5.51 10^6/uL (4.5-5.90); Red Cell Distribution Width 13.5 % (11.8-14.3); White Blood Cell 5.2 10^3/uL (4.4-10.8)
[2024-09-17 08:13] LABS: Albumin 4.6 g/dL (3.2-4.8); Alkaline Phosphatase 87 U/L (46-116); Anion Gap 7 (5-15); BUN/Creatinine Ratio 13.9 (10.0-20.0); Blood Urea Nitrogen 11 mg/dL (9-23); Calcium 9.8 mg/dL (8.7-10.4); Chloride 106 mmol/L (98-107); Cholesterol 193 mg/dL (< 200); HDL Cholesterol 47 mg/dL (40-59); Potassium 4.4 mmol/L (3.5-5.1); Sodium 144 mmol/L (136-145)
[2024-09-17 08:14] LABS: Total Protein 6.9 g/dL (5.7-8.2)
[2024-09-17 08:27] LABS: Creatinine, Urine 82.65 mg/dL (30.0-125.0)
[2024-09-17 08:30] LABS: Alanine Aminotransferase 60 U/L (7-40); Aspartate Aminotransferase 46 U/L (13-40); Bilirubin, Total 1.4 mg/dL (0.2-1.0); Carbon Dioxide 31 mmol/L (20-31); Glucose 118 mg/dL (74-106); LDL Cholesterol 134 mg/dL (< 100); Triglycerides 156 mg/dL (< 150)
== END | disposition home or self-care (01) ==
LOC: LAB 06:20
PROVIDERS: ATTEND Nurse Practitioner Family
DX: Z00.01 Encounter for general adult medical examination with abnormal findings (principal); I11.0 Hypertensive heart disease with heart failure; I50.9 Heart failure, unspecified; E11.69 Type 2 diabetes mellitus with other specified complication; E78.5 Hyperlipidemia, unspecified; R35.1 Nocturia
CPT/HCPCS: 36415; 80053; 80061; 82043; 82570; 83036; 84153; 84443; 85025